=== PATIENT | female | born 1940 | race Caucasian/White ===

== ENCOUNTER 2018-05-16 15:33 | Emergency (ER) | payer OTHER ==
[~2018-05-16] VITALS: Ht 160 cm; Wt 77.1 kg
[2018-05-16 18:34] VITALS: BP 147/93
[2018-05-16] MEDS ORDERED: TRIAMCINOLONE 40MG/ML 1ML VIAL IM ONE (21:00)
[2018-05-16] MEDS ORDERED: LIDOCAINE W/ EPINEPHRINE 1% 20ML VIAL ID ONE (21:00)
[2018-05-16] MEDS ORDERED: MEPERIDINE HCL (25 MG/ML) 1ML VIAL IM ONE (21:45)
== END 2018-05-16 22:15 | disposition home or self-care (01) ==
LOC: ER 15:42
DX: M50.30 Other cervical disc degeneration, unspecified cervical region (principal); M19.90 Unspecified osteoarthritis, unspecified site
CPT/HCPCS: 71046; 72125; 96372; 99284; J2175; J3301